=== PATIENT | female | born 1995 | race African-American/Black ===

== ENCOUNTER 2018-08-04 12:53 | Emergency (ER) | payer OTHER ==
[2018-08-04 13:00] VITALS: BP 132/81; PULSE 125; TEMP 98.5; BMI 29.2
[2018-08-04] MEDS ORDERED: ALBUTEROL SO4 2.5/IPRATROPIUM 0.5 INH SOL 3 ML VIAL.NEB. NEB ONE ×2 (13:52→13:57)
--- NOTE | 2018-08-04 14:01 | PDOC ---
History of Present Illness - General Chief Complaint: Respiratory Stated Complaint: ASTHMA Time Seen by Provider: 08/04/18 13:28 History Source: Patient Exam Limitations: Clinical Condition - History of Present Illness Initial Comments: 08/04/18 13:55 Patient with history of asthma present with complain of 2 day history of persistent cough and wheezing with nasal congestion. Denies fever, chills, sore throat, nausea or vomiting. Patient denies shortness of breath. Timing/Duration: other (2 days) Past History - Past Medical History Allergies/Adverse Reactions: Allergies Allergy/AdvReac Type Severity Reaction Status Date / Time No Known Allergies Allergy Verified 08/04/18 13:00 Home Medications: Ambulatory Orders Benzonatate [Tessalon Pearls -] 100 mg PO TID PRN #21 capsule 08/04/18 Ipratropium [place] 2 spray NS BID PRN 5 Days #1 spray 08/04/18 Prednisone [Deltasone] 20 mg PO BID 5 Days #10 tablet 08/04/18 Asthma: Yes COPD: No - Suicide/Smoking/Psychosocial Hx Smoking History: Never smoked Review of Systems - Review of Systems Able to Perform ROS?: Yes Is the patient limited Colombian proficient: No Constitutional: No: Chills, Fever, Weakness HEENTM: Yes: Symptoms Reported, See HPI, Nose Congestion. No: Eye Pain, Blurred Vision, Tearing, Recent change in vision, Double Vision, Cataracts, Ear Pain, Ocular Prothesis, Ear Discharge, Nose Pain, Tinnitus, Nose Bleeding, Hearing Loss, Throat Pain, Throat Swelling, Mouth Pain, Dental Problems, Difficulty Swallowing, Mouth Swelling, Other Respiratory: Yes: See HPI, Cough, Wheezing. No: Orthopnea, Shortness of Breath , SOB with Exertion, SOB at Rest, Stridor, Productive cough, Hemoptysis, Other Cardiac (ROS): No: Symptoms Reported, See HPI, Chest Pain, Edema, Irregular Heart Rate, Lightheadedness, Palpitations, Syncope, Chest Tightness, Other ABD/GI: No: Abdominal Distended, Abd. Pain w/ defecation, Blood Streaked Bowels , Constipated, Diarrhea, Difficulty Swallowing, Nausea, Poor Appetite, Poor Fluid Intake, Rectal Bleeding, Vomiting, Indigestion, Abdominal cramping, Tarry Stools, Other All Other Systems: Reviewed and Negative *Physical Exam - Vital Signs Last Vital Signs Temp Pulse Resp BP Pulse Ox 98.5 F 125 H 20 132/81 95 08/04/18 12:57 08/04/18 12:57 08/04/18 12:57 08/04/18 12:57 08/04/18 12:57 - Physical Exam Comments: 08/04/18 14:03 GENERAL: Well developed, well nourished. Awake and alert. No acute distress. HEENT: Normocephalic, atraumatic. PERRLA, EOMI. No conjunctival pallor. Sclera are non-icteric. Moist mucous membranes. Oropharynx is clear. NECK: Supple. Full ROM. CARDIOVASCULAR: Regular rate and rhythm. No murmurs, rubs, or gallops. Distal pulses are 2+ and symmetric. PULMONARY: Mild diffuse wheezing.No evidence of respiratory distress. no rales or rhonchi. ABDOMINAL: Soft. Non-tender. Non-distended. No rebound or guarding. No organomegaly. Normoactive bowel sounds. MUSCULOSKELETAL Normal range of motion at all joints. EXTREMITIES: No cyanosis. No clubbing. No edema. No calf tenderness. SKIN: Warm and dry. Normal capillary refill. No rashes. No jaundice. NEUROLOGICAL: Alert, awake, appropriate. Gait is normal without ataxia. PSYCHIATRIC: Cooperative. Good eye contact. Appropriate mood General Appearance: Yes: Nourished, Appropriately Dressed. No: Apparent Distress Medical Decision Making - Medical Decision Making 08/04/18 14:03 08/04/18 14:01 Patient with history of asthma present with complain of 2 day history of persistent cough, nasal congestion, wheezing and headaches without fever. Exam significant for mild diffuse wheezing. Nebulizer treatment ordered for wheezing. Symptoms likely URI with asthma exacerbation. Patient be discharged home on prednisone, his respiratory and cough medication with PCP follow-up after nebulizer treatment. 08/04/18 14:03 *DC/Admit/Observation/Transfer Diagnosis at time of Disposition: URI (upper respiratory infection) Qualifiers: URI type: unspecified URI Qualified Code(s): J06.9 - Acute upper respiratory infection, unspecified Asthma Qualifiers: Asthma severity: mild Asthma persistence: intermittent Asthma complication type : with acute exacerbation Qualified Code(s): J45.21 - Mild intermittent asthma with (acute) exacerbation - Discharge Dispostion Disposition: HOME Condition at time of disposition: Stable Decision to Admit order: No - Prescriptions Prescriptions: Benzonatate [Tessalon Pearls -] 100 mg PO TID PRN #21 capsule PRN Reason: Cough Ipratropium [place] 2 spray NS BID PRN 5 Days #1 spray PRN Reason: nasal congestion Prednisone [Deltasone] 20 mg PO BID 5 Days #10 tablet - Referrals Referrals: Juan Alberto Rose MD [Staff Physician] - - Patient Instructions Printed Discharge Instructions: Asthma -- Adult Additional Instructions: Take medications as prescribed. Use inhaler as needed if severe wheezing. Follow -up with primary care as soon as possible. - Post Discharge Activity
== END 2018-08-04 14:14 | disposition home or self-care (01) ==
LOC: JERFT 12:53
PROC: 3E0F7GC Introduction of Other Therapeutic Substance into Respiratory Tract, Via Natural or Artificial Opening (ICD-10-PCS; principal; 2018-08-04)
DX: J45.21 Mild intermittent asthma with (acute) exacerbation (principal); J06.9 Acute upper respiratory infection, unspecified
CPT/HCPCS: 94640; 99281-25

== ENCOUNTER 2018-10-07 01:50 | Emergency (ER) | payer OTHER ==
[2018-10-07 02:28] VITALS: TEMP 97.7; BMI 28.3
--- NOTE | 2018-10-07 02:39 | PDOC ---
Attending Attestation - Resident Resident Name: Anna Torres - ED Attending Attestation I have performed the following: I have examined & evaluated the patient, The case was reviewed & discussed with the resident, I agree w/resident's findings & plan - HPI HPI: 10/07/18 06:02 Pt comes with wheeze and cough. Ongoing for a few days. - Physicial Exam PE: 10/07/18 06:02 Pt with wheeze bilat and continuous cough. She has tight lungs. Afebrile. Heart abd neuro normal. Pt is . - Medical Decision Making 10/07/18 06:03 Pt treated with duonebs, decadron, and zpak, Feeliong better and she will be d/c home
--- NOTE | 2018-10-07 02:51 | PDOC ---
History of Present Illness - General Chief Complaint: Asthma Stated Complaint: ASTHMA Time Seen by Provider: 10/07/18 02:35 History Source: Patient Exam Limitations: No Limitations - History of Present Illness Initial Comments: 10/07/18 02:50 23 year old with history of asthma present with worsening wheeze and cough for the past several hours that is preventing her from falling asleep. The patient reports that for the past 4-5 days her wheezing has required her to use her home albuterol nebulizer 8-10 times a day. The patient reports recent nasal congestion and some sore throat but denies cough producing yellow or green phlegm, denies fever, N/V/D/C, denies chest pain. Has no other complaints at bedside. Past History - Past Medical History Allergies/Adverse Reactions: Allergies Allergy/AdvReac Type Severity Reaction Status Date / Time No Known Allergies Allergy Verified 08/04/18 13:00 Home Medications: Ambulatory Orders Benzonatate [Tessalon Pearls -] 100 mg PO TID PRN #21 capsule 08/04/18 Ipratropium [place] 2 spray NS BID PRN 5 Days #1 spray 08/04/18 Prednisone [Deltasone] 20 mg PO BID 5 Days #10 tablet 08/04/18 Albuterol 0.083% Nebulizer Saba [Ventolin 0.083% Nebulizer Soln -] 1 neb NEB ONCE #1 vial 10/07/18 Azithromycin 250 mg PO DAILY #4 tablet 10/07/18 Asthma: Yes COPD: No - Suicide/Smoking/Psychosocial Hx Smoking History: Never smoked Have you smoked in the past 12 months: No Information on smoking cessation initiated: No Hx Alcohol Use: No Drug/Substance Use Hx: No Review of Systems - Review of Systems Able to Perform ROS?: Yes Is the patient limited Malay proficient: No Constitutional: No: Chills, Diaphoresis, Fever HEENTM: No: Blurred Vision, Tinnitus Respiratory: Yes: Cough, Shortness of Breath, Wheezing, Productive cough. No: Hemoptysis Cardiac (ROS): No: Chest Pain, Lightheadedness, Palpitations, Syncope ABD/GI: No: Constipated, Diarrhea, Nausea, Vomiting : No: Burning, Dysuria, Hematuria Musculoskeletal: No: Back Pain, Muscle Pain Neurological: No: Headache, Numbness, Tingling *Physical Exam - Vital Signs Last Vital Signs Temp Pulse Resp BP Pulse Ox 97.7 F 82 18 133/90 96 10/07/18 02:00 10/07/18 02:00 10/07/18 02:00 10/07/18 02:00 10/07/18 02:00 - Physical Exam Comments: 10/07/18 03:29 GENERAL: Awake, alert, and fully oriented, in no acute distress HEAD: No signs of trauma, normocephalic, atraumatic EYES: EOMI, sclera anicteric, conjunctiva clear ENT: oropharynx clear without exudates. Moist mucosa NECK: Normal ROM, supple, no lymphadenopathy, JVD, or masses LUNGS: No distress, speaks full sentences, + inspiratory and expiratory wheeze in all lobes. HEART: Regular rate and rhythm, normal S1 and S2, no murmurs, rubs or gallops, peripheral pulses normal and equal bilaterally. ABDOMEN: Soft, nontender, normoactive bowel sounds. No guarding, no rebound. No masses EXTREMITIES : Normal inspection, Normal range of motion, no edema. No clubbing or cyanosis. NEUROLOGICAL: Cranial nerves II through XII grossly intact. Normal speech, no focal sensorimotor deficits SKIN: Warm, Dry, normal turgor, no rashes or lesions noted Moderate Sedation - Procedure Monitoring Vital Signs: Procedure Monitoring Vital Signs Temperature 97.7 F 10/07/18 02:00 Pulse Rate 82 10/07/18 02:00 Respiratory Rate 18 10/07/18 02:00 Blood Pressure 133/90 10/07/18 02:00 O2 Sat by Pulse Oximetry (%) 96 10/07/18 02:00 Medical Decision Making - Medical Decision Making 23 year old with history of asthma present with worsening wheeze and cough for the past several hours that is preventing her from falling asleep. The patient reports that for the past 4-5 days her wheezing has required her to use her home albuterol nebulizer 8-10 times a day. The patient reports recent nasal congestion and some sore throat but denies cough producing yellow or green phlegm, denies fever, N/V/D/C, denies chest pain. ED Course: Patient wheezing and coughing but in no acute distress given duoneb and azithromycin 10/07/18 04:29 Patient feels improved desires to go home. Reassessed, still with significant wheeze and coughing Will give decadron second duoneb 10/07/18 05:01 Patient reassessed, improvement of wheeze Patient feels even more improved. Patient stable for discharge. Informed of all lab and imaging results. Given follow up instructions and strict return precautions. Patient expressed understanding and agree to plan. *DC/Admit/Observation/Transfer Diagnosis at time of Disposition: Asthma - Discharge Dispostion Disposition: HOME Condition at time of disposition: Stable Decision to Admit order: No - Prescriptions Prescriptions: Albuterol 0.083% Nebulizer Saba [Ventolin 0.083% Nebulizer Soln -] 1 neb NEB ONCE #1 vial Azithromycin 250 mg PO DAILY #4 tablet - Referrals - Patient Instructions Printed Discharge Instructions: Asthma -- Adult Additional Instructions: You were seen in the ED for complaints of shortness of breath, wheezing and coughing. In the ED you were evaluated and treated with duoneb and decadron. You showed improvement of symptoms with treatment. There does not appear to be an acute need for immediate hospitalization. You are advised to follow up with your Primary Care Physician within 1 week. You were given a prescription for albuterol nebulizer and short antibiotic course. Return to the ED immediately if you experience worsening shortness of breath, coughing up blood, worsening wheeze, chest pain or fevers. - Post Discharge Activity
[2018-10-07] MEDS ORDERED: ALBUTEROL SO4 2.5/IPRATROPIUM 0.5 INH SOL 3 ML VIAL.NEB. NEB ONE ×2 (03:06→04:32)
[2018-10-07] MEDS ORDERED: AZITHROMYCIN 250 MG TABLET PO ONE (03:31)
[2018-10-07] MEDS ORDERED: DEXAMETHASONE 4 MG TABLET (FP) PO ONE (04:27)
[2018-10-07 05:20] VITALS: BP 131/92; PULSE 84
== END 2018-10-07 05:20 | disposition home or self-care (01) ==
LOC: JER 01:50
PROC: 3E0F7GC Introduction of Other Therapeutic Substance into Respiratory Tract, Via Natural or Artificial Opening (ICD-10-PCS; principal; 2018-10-07)
PROC: 3E0F7GC Introduction of Other Therapeutic Substance into Respiratory Tract, Via Natural or Artificial Opening (ICD-10-PCS; 2018-10-07)
DX: J45.909 Unspecified asthma, uncomplicated (principal)
CPT/HCPCS: 94640; 99281-25

== ENCOUNTER 2018-11-24 23:18 | Emergency (ER) | payer OTHER ==
[2018-11-24 23:25] VITALS: BP 123/82; PULSE 88; TEMP 98.3; BMI 28.3
--- NOTE | 2018-11-25 00:06 | PDOC ---
History of Present Illness - General Chief Complaint: Asthma Stated Complaint: ASTHMA ATTACK Time Seen by Provider: 11/24/18 23:42 History Source: Patient Exam Limitations: No Limitations - History of Present Illness Initial Comments: 11/24/18 23:58 Patient is a 23-year-old female with history of asthma here with complaints of asthma symptoms which is now resolved, and requesting a MDI. Patient states that she's been having some URI symptoms starting since this morning with mild congestion and runny nose states that she's been using her puffer all day but this evening the symptoms worsened and so called EMS. En route patient was given neb treatment and states she feels better currently and now she just needs a prescription for MDI. She is also requesting a referral to a cullet crusher because her asthma symptoms have been worsening over the past year , since the of her child. States that 2 months ago she was in the emergency room and had to get steroids. Denies any fever, chills. States she had a cough earlier today but none currently. PMHX: as above PSOCHX: neg cig, etoh, durg ALL: NKDA GENERAL/CONSTITUTIONAL: No fever or chills. No weakness. No weight change. HEAD, EYES, EARS, NOSE AND THROAT: No change in vision. No ear pain or discharge. No sore throat. CARDIOVASCULAR: No chest pain or shortness of breath. RESPIRATORY: (+) cough, wheezing, (-) hemoptysis.] GASTROINTESTINAL: No nausea, vomiting, diarrhea or constipation. No rectal bleeding. GENITOURINARY: No dysuria, frequency, or change in urination. MUSCULOSKELETAL: No joint or muscle swelling or pain. No neck or back pain. SKIN AND BREASTS: No rash or easy bruising. NEUROLOGIC: No headache, vertigo, loss of consciousness, or loss of sensation. PSYCHIATRIC: No depression or anxiety. ENDOCRINE: No increased thirst. No abnormal weight change. HEMATOLOGIC/LYMPHATIC: No anemia, easy bleeding, or history of blood clots. ALLERGIC/IMMUNOLOGIC: No hives or skin allergy. No latex allergy. GENERAL: The patient is awake, alert, and fully oriented, in no acute distress. HEAD: Normal with no signs of trauma. EYES: Pupils equal, round and reactive to light, extraocular movements intact, sclera anicteric, conjunctiva clear. ENT: Ears normal, nares patent, oropharynx clear without exudates. Moist mucous membranes. NECK: Normal range of motion, supple without lymphadenopathy, JVD, or masses. LUNGS: Breath sounds equal, clear to auscultation bilaterally. No wheezes, and no crackles. HEART: Regular rate and rhythm, normal S1 and S2 without murmur, rub. ABDOMEN: Soft, nontender, normoactive bowel sounds. No guarding, no rebound. No masses. EXTREMITIES: Normal range of motion, no edema. No clubbing or cyanosis. No cords, erythema, or tenderness. NEUROLOGICAL: Cranial nerves II through XII grossly intact. Normal speech, normal gait. PSYCH: Normal mood, normal affect. SKIN: Warm, Dry, normal turgor, no rashes or lesions noted. Past History - Past Medical History Allergies/Adverse Reactions: Allergies Allergy/AdvReac Type Severity Reaction Status Date / Time No Known Allergies Allergy Verified 11/24/18 23:25 Home Medications: Ambulatory Orders Benzonatate [Tessalon Pearls -] 100 mg PO TID PRN #21 capsule 08/04/18 Ipratropium [place] 2 spray NS BID PRN 5 Days #1 spray 08/04/18 Prednisone [Deltasone] 20 mg PO BID 5 Days #10 tablet 08/04/18 Albuterol 0.083% Nebulizer [place] [Ventolin 0.083% Nebulizer Soln -] 1 neb NEB ONCE #1 vial 10/07/18 Azithromycin 250 mg PO DAILY #4 tablet 10/07/18 Albuterol Sulfate Inhaler - [Ventolin HFA Inhaler -] 2 inh PO Q4H #1 inh Prednisone [Deltasone] 40 mg PO DAILY #6 tablet 11/25/18 Asthma: Yes COPD: No - Suicide/Smoking/Psychosocial Hx Smoking History: Never smoked Have you smoked in the past 12 months: No Information on smoking cessation initiated: No Hx Alcohol Use: No Drug/Substance Use Hx: No *Physical Exam - Vital Signs Last Vital Signs Temp Pulse Resp BP Pulse Ox 98.3 F 88 16 123/82 100 11/24/18 23:21 11/24/18 23:21 11/24/18 23:21 11/24/18 23:21 11/24/18 23:21 Moderate Sedation - Procedure Monitoring Vital Signs: Procedure Monitoring Vital Signs Temperature 98.3 F 11/24/18 23:21 Pulse Rate 88 11/24/18 23:21 Respiratory Rate 16 11/24/18 23:21 Blood Pressure 123/82 11/24/18 23:21 O2 Sat by Pulse Oximetry (%) 100 11/24/18 23:21 Medical Decision Making - Medical Decision Making 11/24/18 23:58 Patient is a 23-year-old female with history of asthma here with complaints of asthma symptoms which is now resolved, and requesting a MDI. Patient states that she's been having some URI symptoms starting since this morning with mild congestion and runny nose states that she's been using her puffer all day but this evening the symptoms worsened and so called EMS. En route patient was given neb treatment and states she feels better currently and now she just needs a prescription for MDI. She is also requesting a referral to a cullet crusher because her asthma symptoms have been worsening over the past year , since the of her child. States that 2 months ago she was in the emergency room and had to get steroids. Denies any fever, chills. States she had a cough earlier today but none currently. No treatment required at this point, patient has clear lungs, no wheezing. We'll try to obtain a peak flow I discussed the physical exam findings, ancillary test results and final diagnoses with the patient. I answered all of the patient's questions. The patient was satisfied with the care received and felt comfortable with the discharge plan and treatment plan. The Patient agrees to follow up with the primary care physician within 24-72 hours. *DC/Admit/Observation/Transfer Diagnosis at time of Disposition: Asthma Qualifiers: Asthma severity: unspecified severity Asthma persistence: unspecified Asthma complication type: unspecified Qualified Code(s): J45.909 - Unspecified asthma, uncomplicated URI (upper respiratory infection) Qualifiers: URI type: unspecified URI Qualified Code(s): J06.9 - Acute upper respiratory infection, unspecified - Discharge Dispostion Disposition: HOME Condition at time of disposition: Stable - Prescriptions Prescriptions: Albuterol Sulfate Inhaler - [Ventolin HFA Inhaler -] 2 inh PO Q4H #1 inh Prednisone [Deltasone] 40 mg PO DAILY #6 tablet - Referrals Referrals: Mike Domínguez MD, [Staff Physician] - - Patient Instructions Printed Discharge Instructions: DI for Asthma -- Adult Additional Instructions: Your Discharge Instructions: You must call primary care physician within 24 hours to arrange follow-up. Return to the Emergency Department with any new, persistent or worsening symptoms, for fever, chills, SOB, dizziness or any other concerning changes that may occur. Call to make an appointment with the pulmonary doctor as soon as possible for further evaluation. - Post Discharge Activity Forms/Work/School Notes: Back to Work
== END 2018-11-25 00:15 | disposition home or self-care (01) ==
LOC: JER 23:18
DX: J45.909 Unspecified asthma, uncomplicated (principal); J06.9 Acute upper respiratory infection, unspecified
CPT/HCPCS: 99281-25